=== PATIENT | female | born 1970 | race Caucasian/White ===

== ENCOUNTER 2020-11-13 05:28 | Outpatient (RCR) | payer OTHER ==
[~2020-11-13] VITALS: Ht 175.3 cm; Wt 97.7 kg
[~2020-11-13 05:28] MED LIST: HYDR25TA4 PO; LOSA50TA63 PO; MTP100TCR PO; ROSU5TAB13 PO
== END 2020-11-18 10:35 | disposition home or self-care (01) ==
LOC: PREOP 05:28
PROVIDERS: ATTEND Surgery
DX: Z01.812 Encounter for preprocedural laboratory examination (principal); Z20.822 Contact with and (suspected) exposure to COVID-19
CPT/HCPCS: 87635

== ENCOUNTER 2020-11-15 06:45 | Day surgery (SDC) | payer OTHER ==
[~2020-11-15] VITALS: Ht 175 cm; Wt 97.7 kg
[2020-11-15] MEDS ORDERED: LACTATED RINGERS 1,000 ML IV ONE (07:09)
[2020-11-15 07:30] VITALS: BP 96/79
[2020-11-15] MEDS ORDERED: LACTATED RINGERS 1,000 ML IV STA (07:51)
[2020-11-15] MEDS ORDERED: PROPOFOL INJECTION 50 ML IV ONE ×2 (07:57→08:18)
[2020-11-15] MEDS ORDERED: MIDAZOLAM 2 MG/2 ML (VERSED) VIAL ONE (07:57)
[2020-11-15] MEDS ORDERED: HURRICAINE EXT TUBE (BENZOCAINE) XX PRN (08:00)
[2020-11-15 08:30] VITALS: BP 83/51
[2020-11-15 08:35] VITALS: BP 83/50
--- NOTE | 2020-11-15 08:36 | Progress Note-Pre Operative ---
Pre-Operative Progress Note H&P Reviewed The H&P was reviewed, patient examined and no changes noted. Date Seen by Provider: Nov 15, 2020 Time Seen by Provider: 07:50 Date H&P Reviewed: Nov 15, 2020 Time H&P Reviewed: 07:50 Pre-Operative Diagnosis: change in bowel habits, melena TARAS PADRON DO Nov 15, 2020 08:36
--- NOTE | 2020-11-15 08:38 | Progress Note-Post Operative ---
Post-Operative Progess Note Surgeon (s)/Fence Installer Helper (s) Surgeon TARAS PADRON DO Fence Installer Helper: na Pre-Operative Diagnosis change in bowel habits, melena Post-Operative Diagnosis diverticulosis, hiatal hernia colon polyps Procedure & Operative Findings Date of Procedure 11/15/20 Procedure Performed/Findings egd c biospies, colonosocpy c hot bx polypectomy x 2 Anesthesia Type per sports marketer Estimated Blood Loss Estimated blood loss (mL): none Specimens/Packing Specimens Removed antrum, ge, sigmoid and rectal polyp TARAS PADRON DO Nov 15, 2020 08:37
[2020-11-15 08:40] VITALS: BP_SYST 98; BP_SYST 99; BP_DIAS 56; BP_DIAS 62
[2020-11-15 09:15] VITALS: BP 89/54
--- NOTE | 2020-11-15 11:18 | Anesthesia-General Post-Op ---
MAC Patient Condition Mental Status/LOC: Same as Preop Cardiovascular: Satisfactory Nausea/Vomiting: Absent Respiratory: Satisfactory Pain: Controlled Complications: Absent Post Op Complications Complications None Follow Up Care/Instructions Patient Instructions None needed. Anesthesiology Discharge Order Discharge Order Patient is doing well, no complaints, stable vital signs, no apparent adverse anesthesia problems. No complications reported per nursing. BIMAL DYER CRNA Nov 15, 2020 11:18
--- NOTE | 2020-11-16 01:58 | OPERATIVE REPORT ---
DATE OF SERVICE: 11/15/2020 PREOPERATIVE DIAGNOSES: Change in bowel habits and melena. POSTOPERATIVE DIAGNOSES: Diverticulosis, hiatal hernia, colon polyps. PROCEDURE: EGD with biopsies, colonoscopy with hot biopsy polypectomy x2. SURGEON: Taras Olivo DO ANESTHESIA: Per NITROCELLULOSE MAKER. ESTIMATED BLOOD LOSS: None. COMPLICATIONS: None. INDICATIONS: The patient is a 50-year-old female with change in bowel habits and melena. She understands risks and benefits of procedure and wished to proceed with procedure. Consent was signed in the chart. DESCRIPTION OF PROCEDURE: The patient was taken to the endoscopy suite, placed in left lateral recumbent position. Timeout was performed. Scope was inserted in mouth, down the esophagus, stomach and into the duodenum without difficulty. There were no polyps, masses or ulcerations within the duodenum. Scope was then slowly retracted back into the stomach where it was further insufflated. No polyps, masses or ulcerations. Biopsy of the antrum was obtained. Scope was retroflexed noting a small hiatal hernia, no other pathology. Scope was returned to its normal position, slowly withdrawn to distal esophagus. Biopsy of the GE junction was obtained. No polyps, masses or ulcerations. Scope was then slowly retracted back until completely removed, noting no other pathology. Digital rectal exam was performed. No palpable polyps, masses or ulcerations. Scope was inserted in the rectum, advanced all the way to cecum with minimal difficulty. Prep was adequate. Scope was then slowly retracted back. There were no polyps, masses or ulcerations within the cecum, ascending, transverse and descending colon. In sigmoid colon, polyp was present, which hot biopsy polypectomy was performed. Scope was then continuously retracted back, moderate amount of diverticulosis is present. Scope was then continuously retracted back into the rectum where another polyp was present, which hot biopsy polypectomy was performed. Scope was retroflexed noting no other pathology. Scope was returned to its normal position, slowly withdrawn until completely removed. The patient tolerated procedure well without any complications. She was taken to recovery room in stable condition. RECOMMENDATIONS: The patient will follow up in the office in 2 weeks. The patient will need repeat colonoscopy in 5 years. Any issues before that be seen at that time. The patient with diverticulosis, would recommend high fiber diet. CC: Joao Scott - requested, unable to deliver Job ID: [id number] DocumentID: [id number] Dictated Date: 11/15/2020 16:38:14 Car Coupler Date: 11/16/2020 01:57:42 Dictated By: TARAS OLIVO DO
== END 2020-11-15 09:20 | disposition home or self-care (01) ==
LOC: ENDO 06:45
PROVIDERS: ATTEND Surgery
DX: D12.5 Benign neoplasm of sigmoid colon (principal); K29.50 Unspecified chronic gastritis without bleeding; B96.81 Helicobacter pylori [H. pylori] as the cause of diseases classified elsewhere; K62.1 Rectal polyp; K21.00 Gastro-esophageal reflux disease with esophagitis, without bleeding; K44.9 Diaphragmatic hernia without obstruction or gangrene; E78.5 Hyperlipidemia, unspecified; I11.9 Hypertensive heart disease without heart failure; K57.90 Diverticulosis of intestine, part unspecified, without perforation or abscess without bleeding; Z88.5 Allergy status to narcotic agent; Z79.899 Other long term (current) drug therapy; Z87.891 Personal history of nicotine dependence